=== PATIENT | male | born 1975 | race Caucasian/White ===

== ENCOUNTER 2018-01-03 14:16 | Day surgery (SDC) | payer OTHER ==
--- NOTE | 2018-01-02 16:52 | GHP ---
[f rep st] PREOP HISTORY AND PHYSICAL DATE OF ADMISSION: 01/03/2018 The patient is a 42-year-old male who has had problems with prolapsing, bleeding hemorrhoids for danuta ral months now. He has no history of colonoscopy. On rectal exam, he is found to have prolapsed int ernal hemorrhoids. He denies diarrhea or constipation. His only regular medicine is allopurinol roxana t he uses for gout. Risks and options have been discussed, and he is ready to pursue exam under anesthesia with hemorrhoi dectomy. Risks and options have been fully discussed including, but not limited to, bleeding, infect ion, injury to a nerve, recurrence, anal stricture, anal incontinence, and other problems, and he req uests to proceed. PAST MEDICAL HISTORY: Includes gout. PAST SURGICAL HISTORY: Tonsils as a child. MEDICATIONS: Allopurinol. ALLERGIES: No known drug allergies. SOCIAL HISTORY: Patient is and lives in the [facility] [place]. REVIEW OF SYSTEMS: Negative aside from rectal bleeding and rectal pain. PHYSICAL EXAMINATION: GENERAL: Reveals a 42-year-old male, alert and oriented x3, and in no acute d istress. HEENT: Normocephalic, atraumatic. Sclerae anicteric. CHEST: Clear to auscultation bilat erally. CARDIAC: Regular rate and rhythm. ABDOMEN: Soft, nontender. EXTREMITIES: Warm and dry. RECTAL: With grade 3-4 prolapsing, irritated internal hemorrhoids. IMPRESSION: This is a 42-year-old male with painful, bleeding, prolapsed internal hemorrhoids. PLAN: To proceed with an exam under anesthesia with hemorrhoidectomy, with Dr. Card. Again, risks and options have been discussed and he requests to proceed. /[id number]/MODL
[2018-01-03] MEDS ORDERED: cefOXitin SODIUM 2 GM in STERILE WATER INJ 21 ML IV ONE (14:42)
[2018-01-03] MEDS ORDERED: LR 1,000 ML IV ONE (14:43)
[2018-01-03 14:57] VITALS: PULSE 58
--- NOTE | 2018-01-03 17:41 | PDANEPAE ---
ANE History of Present Illness 42 year of male for EUA with hemorrhoid removal. ANE Past Medical History - Cardiovascular History Hx Hypertension: No Hx Arrhythmias: No Hx Chest Pain: No Hx Coronary Artery / Peripheral Vascular Disease: No Hx CHF / Valvular Disease: No Hx Palpitations: No - Pulmonary History Hx COPD: No Hx Asthma/Reactive Airway Disease: No Hx Recent Upper Respiratory Infection: No Hx Oxygen in Use at Home: No Hx Sleep Apnea: No Sleep Apnea Screening Result - Last Documented: Negative - Neurologic History Hx Cerebrovascular Accident: No Hx Seizures: No Hx Dementia: No - Endocrine History Hx Diabetes: No Hypothyroid: No Hyperthyroid: No Obesity: no - Renal History Hx Renal Disorders: No - Liver History Hx Hepatic Disorders: No - Neurological & Psychiatric Hx Hx Neurological and Psychiatric Disorders: No - GI History GERD: no Hx Gastrointestinal Disorders: No ANE Review of Systems Review of systems is: negative Review of Systems: - Exercise capacity Exercise capacity: >=4 METS ANE Patient History - Allergies Allergies/Adverse Reactions: No Known Drug Allergies Allergy (Verified 01/02/18 16:35) - Home Medications Home medications: home medication list seen and reviewed Home Medications: Allopurinol 01/03/18 [Last Taken 01/02/18] - NPO status NPO Since - Liquids (Date): 01/03/18 NPO Since - Liquids (Time): 05:00 NPO Since - Solids (Date): 01/02/18 NPO Since - Solids (Time): 18:00 - Anes Hx Anes Hx: no prior problems - Smoking Hx Smoking Status: Never smoked - Family Anes Hx Family Anes Hx: neg - N/A ANE Labs/Vital Signs - Vital Signs Vital Signs: reviewed preoperatively; see RN documention for details Blood Pressure: 125/82 Heart Rate: 58 Respiratory Rate: 14 O2 Sat (%): 94 Height: 175.26 cm Weight: 70.307 kg ANE Physical Exam - Airway Neck exam: FROM Mallampati Score: Class 2 Mouth exam: normal dental/mouth exam, william - Pulmonary Pulmonary: no respiratory distress - Cardiovascular Cardiovascular: regular rate and rhythym - ASA Status ASA Status: I ANE Anesthesia Plan Anesthesia Plan: general endotracheal anesthesia
[2018-01-03] MEDS ORDERED: BUPIVACAINE/EPI 0.5% 30 ML SDV ONE (17:48)
[2018-01-03] MEDS ORDERED: PROPOFOL 200 MG/20 ML VIAL ONE (17:51)
[2018-01-03] MEDS ORDERED: fentaNYL 100 MCG/2 ML INJ ONE (17:51)
--- NOTE | 2018-01-03 17:53 | PDHPUP ---
History & Physical Update H&P update statement: This history and physical update is based on an assessment of the patient which was completed after admission or registration (within 24 hours), but prior to the surgery/procedure. H&P update: H&P reviewed & patient examined, no change in patient's condition since H&P completed
--- NOTE | 2018-01-03 17:55 | POSTOPPROG ---
Post Op Note Date of Operation: 01/03/18 Surgeon: Colt Card Anesthesiologist: Jun Peng Anesthesia: GET(General Endotracheal) Pre-op Diagnosis: prolapse hemorrhoids with bleeding and pain Post-op Diagnosis: same Procedure: EUA, hemorrhoidectomy Findings: prolapsed hemorrhoids with irritation Inf/Abcess present in the surg proc area at time of surgery?: No EBL: Minimal Complications: none Specimen(s): hemorrhoids to pathology
[2018-01-03] MEDS ORDERED: LR 500 ML IV PRN (18:37)
[2018-01-03] MEDS ORDERED: DIAZEPAM 5 MG/ML 1 ML SYR IVP PRN (18:37)
[2018-01-03] MEDS ORDERED: NALOXONE HCL 0.4 MG/ML INJ IVP PRN (18:37)
[2018-01-03] MEDS ORDERED: PHENYLEPHRINE HCL 100 MCG/ML SYR IVP PRN (18:37)
[2018-01-03] MEDS ORDERED: fentaNYL 100 MCG/2 ML INJ IVP PRN (18:37)
[2018-01-03] MEDS ORDERED: HYDROmorphONE/DILAUDID 2 MG/ML INJ IVP PRN (18:37)
[2018-01-03] MEDS ORDERED: PROMETHAZINE HCL 25 MG/ML INJ IVP PRN (18:37)
[2018-01-03] MEDS ORDERED: ONDANSETRON 4 MG/2 ML VIAL IVP PRN (18:37)
[2018-01-03] MEDS ORDERED: ROCURONIUM 50 MG/5 ML VIAL ONE (18:39)
[2018-01-03] MEDS ORDERED: LIDOCAINE 2% 5 ML SDV ONE (18:39)
[2018-01-03] MEDS ORDERED: ONDANSETRON 4 MG/2 ML VIAL ONE (18:40)
[2018-01-03] MEDS ORDERED: SUGAMMADEX SODIUM 200 MG/2 ML VIAL IVP ONE (18:40)
[2018-01-03] MEDS ORDERED: DEXAMETHASONE 4 MG/ML VIAL ONE (18:40)
[2018-01-03 19:38] VITALS: TEMP 97.5
[2018-01-03 19:48] VITALS: RESP 14
[2018-01-03 20:34] VITALS: BP 130/92; O2SAT 97
--- NOTE | 2018-01-04 13:40 | POSTANESTH ---
Post Anesthetic Evaluation Cardiovascular Status: Normal, Stable, Similar to Pre-Op Cond Respiratory Status: Normal, Stable, Similar to Pre-op Cond. Level of Consciousness/Mental Status: Can Participate in Eval, Alert and Oriented Pain Control: Adequate, Prn Tx Ordered Nausea/Vomiting Control: Adequate, Prn Tx Ordered Complications Possibly Related to Anesthesia: None Noted
== END 2018-01-03 20:35 | disposition home or self-care (01) ==
LOC: FSGY 14:16
PROVIDERS: ATTEND Surgery
PROC: 06BY0ZC Excision of Hemorrhoidal Plexus, Open Approach (ICD-10-PCS; principal; 2018-01-03 16:15)
DX: K64.8 Other hemorrhoids (principal)
CPT/HCPCS: J0694; J1100; J2405; J2704; J3010

== ENCOUNTER 2018-04-26 11:42 | Emergency (ER) | payer OTHER ==
--- NOTE | 2018-04-26 12:42 | EDPHY ---
H & P Stated Complaint: Hands,legs feel swollen since Tuesday;wants tests run Time Seen by Provider: 04/26/18 12:37 - Personal History Current Tetanus Diphtheria and Acellular Pertussis (TDAP): Yes - Medical/Surgical History Hx Diabetes: No Other PMH: gout - Social History Smoking Status: Never smoked Constitutional: Initial Vital Signs Temperature (C) 36.7 C 04/26/18 11:45 Heart Rate 78 04/26/18 11:45 Respiratory Rate 18 04/26/18 11:45 Blood Pressure 146/79 H 04/26/18 11:45 O2 Sat (%) 96 04/26/18 11:45 O2 Delivery Mode Room Air Allergies/Adverse Reactions: No Known Drug Allergies Allergy (Verified 04/26/18 11:49) Home Medications: Medication Instructions Recorded Allopurinol 01/03/18 Doxycycline Hyclate 100 mg PO BID #14 tablet 04/26/18 predniSONE 20 mg PO DAILY #5 tab 04/26/18 Medical Decision Making ED Course/Re-evaluation: CHIEF COMPLAINT: Extremity swelling and fever HISTORY OF PRESENT ILLNESS: The patient is a 43 y/o male complaining of extremity swelling and flu like symptoms, onset Tuesday, 2 days ago. While at a barbecue on Tuesday, he was bitten by horse flies. On Tuesday he felt weak, had a low grade fever, and noticed some swelling. He did not develop hives. This swelling is primarily in his hands and behind his knees, which feel tighter than normal. Yesterday he took ibuprofen which alleviated the swelling. When he woke up today the swelling returned and he was advised to present to the emergency department. Denies shortness of breath, chest pain, abdominal pain, nausea, vomiting, numbness, paresthesias. REVIEW OF SYSTEMS: A 10 point review of systems was performed and is negative with the exception of the elements mentioned in the history of present illness. PHYSICAL EXAM: HR, BP, O2 Sat, RR. Temp noted General Appearance: Alert, well hydrated, appropriate, and non-toxic appearing. Head: Atraumatic without scalp tenderness or obvious injury Eyes: Pupils equal, round, reactive to light and accommodation, EOMI, no trauma , no injection. Ears: Clear bilaterally, no perforation, normal landmarks Nose: Atraumatic, no rhinorrhea, clear. Throat: There is no erythema or exudates, no lesions, normal tonsils, mucus membranes moist. Neck: Supple, nontender, no lymphadenopathy. Respiratory: No retractions, no distress, no wheezes, and no accessory muscle use. Lungs are clear to auscultation bilaterally. Cardiovascular: Regular rate and rhythm, no murmurs, rubs, or gallops. Bilateral carotid, radial, dorsalis pedis, and posterior tibial pulses intact. Good capillary refill all extremities. Gastrointestinal: Abdomen is soft, nontender, non-distended, no masses, no rebound, no guarding, no peritoneal signs. Musculoskeletal: Normal active ROM of all extremities, atraumatic. Neurological: Alert, appropriate, and interactive. The patient has normal DTRs and non-focal cranial nerves, motor, sensory, and cerebellar exam. Skin: No rashes, good turgor, no nodules on palpation. Past medical history: Gout Past surgical history: Denies Family history: Denies Social history: Lives in [place], employed, DIAGNOSTICS/PROCEDURES/CRITICAL CARE TIME: Not indicated DIFFERENTIAL DIAGNOSIS: The differential diagnosis for the patient's extremity swelling included but was not limited to systemic illness, Lyme disease, hypoalbuminemia, congestive heart failure, cor pulmonale, venous stasis, trauma, and DVT. MEDICAL DECISION MAKING: The patient is a 43 y/o male presenting with extremity swelling and flu like symptoms, onset Tuesday, 2 days ago. I cannot visualize the swelling, but he does have a tight sensation when flexing and extending his extremities. I-Stat ordered; 60mg PO Prednisone and 100 mg PO Doxycycline given. I have given Doxycycline as a prophylactic for potential viral or bacterial exposure from the horse fly bites. 1303: Patient's I-stat is normal. 1305: Reassessed patient and discussed I-stat findings. I have prescribed him Doxycycline and prednisone for his symptoms. Return precautions provided; patient is comfortable with this plan. - Data Points Laboratory Results: 04/26/18 12:56 POC Hgb 11.2 gm/dL L gm/dL (13.7-17.5) POC Hct 33 % L % (40-51) POC Sodium 142 mEq/L mEq/L (135-145) POC Potassium 4.0 mEq/L mEq/L (3.3-5.0) POC Chloride 107 mEq/L mEq/L (97-110) POC BUN 12 mg/dL mg/dL (7-23) POC Creatinine 1.2 mg/dL mg/dL (0.7-1.3) POC Glucose 97 mg/dL mg/dL (70-100) Medications Given: Discontinued Medications Doxycycline Hyclate (Doxycycline Hyclate) 100 mg PO EDNOW ONE PRN Reason: Protocol Stop: 04/26/18 12:49 Last Admin: 04/26/18 13:02 Dose: 100 mg Prednisone (Prednisone) 60 mg PO EDNOW ONE Stop: 04/26/18 12:49 Last Admin: 04/26/18 13:01 Dose: 60 mg Point of Care Test Results: Chemistry 04/26/18 12:56 POC Sodium 142 mEq/L mEq/L (135-145) POC Potassium 4.0 mEq/L mEq/L (3.3-5.0) POC Chloride 107 mEq/L mEq/L (97-110) POC BUN 12 mg/dL mg/dL (7-23) POC Creatinine 1.2 mg/dL mg/dL (0.7-1.3) POC Glucose 97 mg/dL mg/dL (70-100) ISTAT H&H 04/26/18 12:56 POC Hgb 11.2 gm/dL L gm/dL (13.7-17.5) POC Hct 33 % L % (40-51) Departure - Departure Disposition: Home, Routine, Self-Care Clinical Impression: Swelling, Low grade fever Insect bite Qualifiers: Encounter type: initial encounter Qualified Code(s): W57.XXXA - Bitten or stung by nonvenomous insect and other nonvenomous arthropods, initial encounter Condition: Good Instructions: Insect Bite or Sting (ED), Fever in Adults (ED), Swollen Joint ( ED) Additional Instructions: 1. Take Doxycycline as prescribed. This will make you more sun sensitive. 2. Take Prednisone as prescribed. 3. Follow up with your primary care physician within 72 hours for reevaluation. 4. Drink plenty of fluids. 5. Return to the emergency department immediately for high fever, severe headache or neck pain, difficulty breathing, abdominal pain, rash or other worsening of condition. Referrals: Bonilla Medley MD [Primary Care Provider] - As per Instructions Prescriptions: Doxycycline Hyclate 100 mg PO BID #14 tablet predniSONE 20 mg PO DAILY #5 tab Report Scribed for: Diaz Zuniga Report Scribed by: Carmelina Hernandez Date of Report: 04/26/18 Time of Report: 12:42
[2018-04-26] MEDS ORDERED: DOXYCYCLINE HYCLATE 100 MG CAP/TAB PO ONE (12:48)
[2018-04-26] MEDS ORDERED: predniSONE 20 MG TAB PO ONE (12:48)
[2018-04-26 13:21] VITALS: BP 138/76
== END 2018-04-26 13:21 | disposition home or self-care (01) ==
DX: S60.561A Insect bite (nonvenomous) of right hand, initial encounter (principal); R50.9 Fever, unspecified; W57.XXXA Bitten or stung by nonvenomous insect and other nonvenomous arthropods, initial encounter; Y99.8 Other external cause status; Y93.G2 Activity, grilling and smoking food
CPT/HCPCS: 82435-PO; 82565-PO; 82947-PO; 84132-PO; 84295-PO; 84520-PO; 85014-PO; J7512